=== PATIENT | male | born 1995 | race African-American/Black ===

== ENCOUNTER 2018-04-22 21:27 | Emergency (ER) | payer OTHER, BC ==
[2018-04-22] MEDS ORDERED: HYDROcodone/Acetaminophen 10/325 mg Tablet ONE (21:58)
[2018-04-22] MEDS ORDERED: Ibuprofen 800 MG TAB ONE (21:58)
[2018-04-22] MEDS ORDERED: Clindamycin 150 MG CAP ONE (21:58)
== END 2018-04-22 22:10 | disposition home or self-care (01) ==
LOC: MADERS 21:27
DX: L05.01 Pilonidal cyst with abscess (principal)
CPT/HCPCS: 99283

== ENCOUNTER 2019-08-09 03:09 | Emergency (ER) | payer BC, OTHER, SELFPAY | END 2019-08-09 04:26 | disposition home or self-care (01) | LOC: MADERS 03:09 | DX: S40.012A Contusion of left shoulder, initial encounter (principal); V89.2XXA Person injured in unspecified motor-vehicle accident, traffic, initial encounter | CPT/HCPCS: 99283 ==

== ENCOUNTER 2022-12-27 14:39 | Emergency (ER) | payer SELFPAY | END 2022-12-27 15:13 | disposition home or self-care (01) | LOC: MADERS 14:39 | DX: U07.1 COVID-19 (principal) | CPT/HCPCS: 87635; 99284 ==

== ENCOUNTER 2023-08-04 15:20 | Emergency (ER) | payer OTHER, SELFPAY | END 2023-08-04 16:28 | disposition home or self-care (01) | LOC: MADERS 15:20 | DX: M54.50 Low back pain, unspecified (principal) | CPT/HCPCS: 99283 ==

== ENCOUNTER 2024-04-24 12:23 | Emergency (ER) | payer OTHER, SELFPAY | END 2024-04-24 12:54 | disposition home or self-care (01) | LOC: MADERS 12:23 | DX: S13.4XXA Sprain of ligaments of cervical spine, initial encounter (principal); S39.012A Strain of muscle, fascia and tendon of lower back, initial encounter; V89.9XXA Person injured in unspecified vehicle accident, initial encounter | CPT/HCPCS: 99283 ==